=== PATIENT | female | born 1985 | race Caucasian/White ===

== ENCOUNTER 2022-05-29 21:58 | Emergency (ER) | payer OTHER ==
[2022-05-29] MEDS ORDERED: cefTRIAXone 1 GM, Lidocaine 1% 2.1 ML IM ONE ×2 (22:51)
== END 2022-05-29 23:25 | disposition home or self-care (01) ==
LOC: JP.ED 21:58
DX: N30.90 Cystitis, unspecified without hematuria (principal); Z72.0 Tobacco use; Z88.8 Allergy status to other drugs, medicaments and biological substances; Z91.048 Other nonmedicinal substance allergy status
CPT/HCPCS: 96372; 99283; J0696